=== PATIENT | male | born 1955 | race Caucasian/White ===

== ENCOUNTER → 2019-11-07 12:08 | Outpatient (BNVA) | payer MEDICARE, OTHER, SELFPAY | PROVIDERS: Visit Provider Nurse Practitioner Family | DX: M25.562 Pain in left knee (principal); M25.462 Effusion, left knee; M10.9 Gout, unspecified | CPT/HCPCS: 73562; 80053; 84550; 85025 ==

== ENCOUNTER → 2019-11-12 12:00 | Outpatient (BNVA) | payer MEDICARE, OTHER, SELFPAY | PROVIDERS: Visit Provider Nurse Practitioner Family | DX: M10.9 Gout, unspecified (principal); M25.50 Pain in unspecified joint; R73.09 Other abnormal glucose; R53.83 Other fatigue; E78.2 Mixed hyperlipidemia | CPT/HCPCS: 36416; 80061; 81000; 82962; 83036; 84443 ==

== ENCOUNTER → 2020-08-04 16:14 | Outpatient (BNVA) | payer MEDICARE, OTHER, SELFPAY | PROVIDERS: Visit Provider Nurse Practitioner Family | DX: E11.9 Type 2 diabetes mellitus without complications (principal); E55.9 Vitamin D deficiency, unspecified; Z13.6 Encounter for screening for cardiovascular disorders; E29.1 Testicular hypofunction; R53.83 Other fatigue | CPT/HCPCS: 80053; 80061; 82306; 83036; 84402; 84403; 84443; 85025 ==

== ENCOUNTER → 2020-08-28 11:51 | Outpatient (BNVA) | payer MEDICARE, OTHER, SELFPAY | PROVIDERS: Visit Provider Nurse Practitioner Family | DX: Z12.5 Encounter for screening for malignant neoplasm of prostate (principal); N52.9 Male erectile dysfunction, unspecified; E11.9 Type 2 diabetes mellitus without complications | CPT/HCPCS: G0103 ==

== ENCOUNTER → 2020-12-29 10:39 | Outpatient (BNVA) | payer MEDICARE, OTHER, SELFPAY | PROVIDERS: Visit Provider Nurse Practitioner Family | DX: E11.9 Type 2 diabetes mellitus without complications (principal); E29.1 Testicular hypofunction; N39.0 Urinary tract infection, site not specified | CPT/HCPCS: 80053; 83036; 84402; 84403; 85025 ==

== ENCOUNTER → 2020-12-30 10:39 | Outpatient (BNVA) | payer MEDICARE, OTHER, SELFPAY | PROVIDERS: Visit Provider Nurse Practitioner Family | DX: E11.9 Type 2 diabetes mellitus without complications (principal); E29.1 Testicular hypofunction; N39.0 Urinary tract infection, site not specified | CPT/HCPCS: 81003 ==

== ENCOUNTER → 2021-01-06 00:01 | Outpatient (BNVA) | payer MEDICARE, OTHER, SELFPAY | PROVIDERS: PCP Nurse Practitioner Family; Visit Provider Nurse Practitioner Family | DX: N39.0 Urinary tract infection, site not specified (principal); R39.9 Unspecified symptoms and signs involving the genitourinary system | CPT/HCPCS: 81003 ==

== ENCOUNTER → 2021-08-26 08:57 | Outpatient (BNVA) | payer MEDICARE, OTHER, SELFPAY | PROVIDERS: PCP Nurse Practitioner Family; Visit Provider Nurse Practitioner Family | DX: E29.1 Testicular hypofunction (principal) | CPT/HCPCS: 84402; 84403; 85025 ==